=== PATIENT | male | born 1955 | race Caucasian/White ===

== ENCOUNTER 2016-08-06 17:56 | Emergency (ER) | payer BC, OTHER ==
[2016-08-06 18:13] VITALS: RESP 18
[2016-08-06] MEDS ORDERED: TDAP ADULT 0.5 ML VIAL (BOOSTRIX) IM ONE (18:34)
[2016-08-06] MEDS ORDERED: CEPHALEXIN 500MG PREPACK#4 BTL TAKEHOME ONE (19:12)
[2016-08-06] MEDS ORDERED: CEPHALEXIN 500 MG CAP PO ONE (19:12)
--- NOTE | 2016-08-06 19:21 | DX ---
Right Hand, Three Views History: Pain post trauma. Crush injury to right second and 3rd fingers Findings: There is a possibly open , comminuted fracture of the mid shaft of the distal phalanx of th e 3rd finger. The distal portion of the distal phalanx is slightly dorsally displaced and distracted by approximately 4-5 mm. The DIP joint remains normally aligned. Fine bony detail is obscured by over lying bandaging material. No other fracture is identified. Impression: Suspect open fracture of the distal phalanx of the 3rd finger.
--- NOTE | 2016-08-06 20:53 | EDPHY ---
H & P Time Seen by Provider: 08/06/16 18:23 HPI/ROS: Chief complaint: Right middle finger injury History of present illness: 61-year-old male presents to the emergency department for evaluation and treatment of right middle finger injury. Patient cut his middle finger on a eight section blower machine approximately 2 hours ago. He states the tip of his finger has essentially been cut off. He has also noted a slight cut to the right ring finger. He states the tip of the middle finger is barely attached and has no sensation in it. There is pain at the site of the wound. He cannot move the finger with flexion or extension well. He denies other trauma from the event. He is unsure of his last tetanus shot. Review of systems: A 10 point review of systems was obtained and other than described above is negative Smoking Status: Never smoked Physical Exam: General: Alert, nontoxic Skin: The tip of the right middle finger is nearly amputated, this is just proximal to the nail. No significant lacerations noted to the rest of the fingers or hand. Musculoskeletal: He can barely flex and extend his right middle finger in the DIP, PIP and MCP joint of the right middle finger. He is moving the other fingers well. The rest of the right hand is unremarkable as well as the right wrist. Vascular: The nearly amputated tip of the right middle finger is dusky with poor blood flow. There is active bleeding from the wound. The rest of the fingers have good capillary refill. Radial pulses are 2+. Neurologic: There is no sensation apparent in the nearly amputated tip of the right middle finger. The rest of the right fingers appear to have good sensation. Constitutional: Initial Vital Signs Temperature (C) 36.4 C 08/06/16 18:09 Heart Rate 77 08/06/16 18:09 Respiratory Rate 18 08/06/16 18:09 Blood Pressure 170/95 H 08/06/16 18:09 O2 Sat (%) 95 08/06/16 18:09 O2 Delivery Mode Room Air Allergies/Adverse Reactions: No Known Allergies Allergy (Unverified 08/06/16 18:13) Home Medications: Medication Instructions Recorded Cephalexin [Keflex] 500 mg PO QID 6 Days 08/06/16 Hydrocodone/APAP 5/325 [Worden 1 tab PO Q4 #10 tab 08/06/16 5/325 (*)] Medical Decision Making - Diagnostics Imaging: X-ray series of the right hand shows what appears to be an open fracture of the right 3rd distal phalanx Procedures: Procedure: Laceration repair. Verbal consent was obtained from the patient. The 2 cm partial amputation of the tip of the right middle finger was anesthetized with a digital block. The wound was irrigated, draped and explored to its base with a gloved finger. The wound was repaired with 5 0 Prolene by lining up with nail and defect of tissue. The wound repair was complex requiring realignment of a finger tip. The procedure was performed by myself. Procedure: Splint placement. A finger splint was applied. After application of the splint I returned and re- examined the patient. The splint was adequately immobilizing the joint and distal to the splint the patient's circulation and sensation was intact. ED Course/Re-evaluation: Patient seen under the supervision of my secondary supervising physician Dr. Albino Rodriguez. Patient presents to the emergency department after nearly amputating the tip of his right middle finger. There is poor blood flow to the nearly amputated tip with loss of sensation. The rest the fingers are largely unremarkable. X-ray does confirm a fracture. I have consulted with on-call hand surgery, Dr. Oliver Coleman. He is comfortable with primary closure in the emergency department, splinting, starting patient on antibiotics and following up in the clinic. This is performed. Further, patient's tetanus is updated. Patient is aware he may have to have the tip of his finger amputated. He is discharged home with a prepack of antibiotics and pain medicine as well as a prescription for both. He is referred to hand surgery for further evaluation and care. Strict return precautions are given. Patient voiced understanding and agreement with plan. Differential Diagnosis: Included but not limited to laceration, deep structure injury including open fracture, nerve injury and tendon injury, foreign body contamination - Data Points Medications Given: Discontinued Medications Acetaminophen/Hydrocodone Bitart (Worden 5/325mg Prepack#6) 1 btl TAKEHOME EDNOW ONE Stop: 08/06/16 20:57 Last Admin: 08/06/16 21:46 Dose: 1 btl Cephalexin (Keflex 500 Mg Prepack#4) 1 btl TAKEHOME EDNOW ONE PRN Reason: Protocol Stop: 08/06/16 19:13 Last Admin: 08/06/16 21:45 Dose: 1 btl Cephalexin HCl (Keflex) 500 mg PO EDNOW ONE PRN Reason: Protocol Stop: 08/06/16 19:13 Last Admin: 08/06/16 19:40 Dose: 500 mg Diphtheria/Tetanus/Acell Pertussis (Boostrix) 0.5 ml IM .ONCE ONE Stop: 08/06/16 18:35 Last Admin: 08/06/16 19:03 Dose: 0.5 ml Departure - Departure Disposition: Home, Routine, Self-Care Clinical Impression: Finger near amputation, right Condition: Good Instructions: Cephalexin (By mouth), Hydrocodone/Acetaminophen (By mouth), Finger Amputation (ED) Additional Instructions: Please call tomorrow and arrange a follow-up with hand surgery for continued evaluation and care Take all antibiotics as prescribed until finished unless told otherwise by Hand surgery In regards to pain control see the following: Use ibuprofen 600 mg 3 times a day for the next 2-3 days for pain In addition You have been prescribed Worden for pain. Worden contains Tylenol, do not take extra Tylenol/acetaminophen/Apap with it. It is sedating. If symptoms worsen or new symptoms develop return to the emergency department for recheck immediately for Referrals: NONE *PRIMARY CARE P,. [Primary Care Provider] - As per Instructions Oliver Coleman MD [Medical Doctor] - As per Instructions Prescriptions: Cephalexin [Keflex] 500 mg PO QID 6 Days Hydrocodone/APAP 5/325 [Worden 5/325 (*)] 1 tab PO Q4 #10 tab
[2016-08-06] MEDS ORDERED: HYDROCOD/APAP 5/325 PREPACK#6 BTL TAKEHOME ONE ×2 (20:55→20:56)
[2016-08-06 21:48] VITALS: BP 128/74; PULSE 76; TEMP 98.2; O2SAT 96
== END 2016-08-06 21:19 | disposition home or self-care (01) ==
PROC: 0HQFXZZ Repair Right Hand Skin, External Approach (ICD-10-PCS; principal; 2016-08-06)
DX: S68.122A Partial traumatic metacarpophalangeal amputation of right middle finger, initial encounter (principal); Z23 Encounter for immunization; W45.8XXA Other foreign body or object entering through skin, initial encounter
CPT/HCPCS: L3925

== ENCOUNTER → 2016-08-27 | Outpatient (CLI) | payer OTHER ==
--- NOTE | 2016-08-27 11:25 | DX ---
Right third finger, 3 views. History: Comminuted fracture third finger. Follow-up. Comparison: August 06, 2016. Findings: There is a comminuted displaced fracture of the midshaft of the distal phalanx right third finger. There is stable alignment. No significant callus formation or bridging bone. Mild degenerativ e changes seen in the PIP joint of the third finger. Degenerative changes seen at the first metacarpo phalangeal joint and carpometacarpal joint stable in appearance. Impression: Comminuted mildly displaced fracture of the distal phalanx right third finger with no sig nificant callus.
== END ==
LOC: BMCIMAGING 10:08
PROVIDERS: ATTEND Physician Assistant
DX: S62.632D Displaced fracture of distal phalanx of right middle finger, subsequent encounter for fracture with routine healing (principal)

== ENCOUNTER → 2016-09-24 | Outpatient (CLI) | payer OTHER | LOC: BMCIMAGING 10:14 | PROVIDERS: ATTEND Physician Assistant | DX: S62.632G Displaced fracture of distal phalanx of right middle finger, subsequent encounter for fracture with delayed healing (principal) ==